=== PATIENT | female | born 1945 | race Caucasian/White ===

== ENCOUNTER 2017-07-29 19:12 | Emergency (ER) | payer OTHER | END 2017-07-30 17:48 | disposition home or self-care (01) | LOC: E/R 07-30 17:48 | DX: R21 Rash and other nonspecific skin eruption (principal) | CPT/HCPCS: 99283 ==

== ENCOUNTER 2017-08-05 12:36 | Emergency (ER) | payer OTHER ==
[2017-08-05] MEDS: predniSONE 20 MG TAB PO (16:08)
[2017-08-05] MEDS: DIPHENHYDRAMINE 25 MG CAP PO (16:09)
[2017-08-05] MEDS: CEPHALEXIN 500 MG CAP PO (16:27)
== END 2017-08-05 16:37 | disposition home or self-care (01) ==
LOC: FTE 12:36
DX: L50.0 Allergic urticaria (principal)
CPT/HCPCS: 99284

== ENCOUNTER 2018-10-22 19:50 | Emergency (ER) | payer OTHER ==
[2018-10-23] MEDS: KETOROLAC 30 MG INJ IM (00:06)
== END 2018-10-23 03:39 | disposition home or self-care (01) ==
LOC: FTE 19:50
DX: S52.611A Displaced fracture of right ulna styloid process, initial encounter for closed fracture (principal); S52.571A Other intraarticular fracture of lower end of right radius, initial encounter for closed fracture; W10.9XXA Fall (on) (from) unspecified stairs and steps, initial encounter; Y92.9 Unspecified place or not applicable
CPT/HCPCS: 29125; 73090-RT; 73110-RT; 96372; 99284-25

== ENCOUNTER 2019-02-22 22:05 | Emergency (ER) | payer OTHER ==
[2019-02-23] MEDS: BELLADONNA/PHENOBARBITAL TAB PO (01:49)
[2019-02-23] MEDS: OXYCODONE/ACETAMINOPHEN (5/325) TAB PO (01:50)
[2019-02-23] MEDS: LIDOCAINE/MYLANTA 40 ML BTL PO (01:50)
[2019-02-23 02:42] LABS: ADD UMIC YES; UR ASCORBIC ACID 40 mg/dL (NEGATIVE); UR BACTERIA FEW /HPF (NONE SEEN); UR BILIRUBIN (Dip) NEGATIVE (NEGATIVE); UR BLOOD (Dip) NEGATIVE (NEGATIVE); UR CLARITY SLIGHTLY CLOUDY (CLEAR); UR COLOR YELLOW (YELLOW); UR GLUCOSE (Dip) NEGATIVE (NEGATIVE); UR KETONES (Dip) TRACE mg/dL (NEGATIVE); UR LEUKOCYTE ESTERASE (Dip) NEGATIVE Leu/ul (NEGATIVE); UR NITRITE (Dip) POSITIVE (NEGATIVE); UR RBC 1 /HPF (0-5); UR SPECIFIC GRAVITY (Dip) 1.012 (1.003-1.030); UR TOTAL PROTEIN (Dip) NEGATIVE (NEGATIVE); UR UROBILINOGEN (Dip) NEGATIVE (NEGATIVE); UR WBC 1 /HPF (0-5)
[2019-02-23] MEDS: CEFTRIAXONE 1 GM/50 ML (PMX) 50 ML IVPB (03:31)
== END 2019-02-23 04:47 | disposition home or self-care (01) ==
LOC: E/R 22:05
DX: N30.00 Acute cystitis without hematuria (principal); R40.2142 Coma scale, eyes open, spontaneous, at arrival to emergency department; R40.2362 Coma scale, best motor response, obeys commands, at arrival to emergency department; R40.2252 Coma scale, best verbal response, oriented, at arrival to emergency department
CPT/HCPCS: 36415; 81001; 87086; 93005; 96374; 99284-25